=== PATIENT | male | born 1960 | race Caucasian/White ===

== ENCOUNTER 2018-10-12 08:11 | Emergency (ER) | payer OTHER ==
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
== END 2018-10-12 10:59 | disposition home or self-care (01) ==
LOC: UCEAST 08:11
DX: S29.012A Strain of muscle and tendon of back wall of thorax, initial encounter (principal); X58.XXXA Exposure to other specified factors, initial encounter; Y93.9 Activity, unspecified; Y92.89 Other specified places as the place of occurrence of the external cause; Y99.0 Civilian activity done for income or pay; F17.210 Nicotine dependence, cigarettes, uncomplicated
CPT/HCPCS: 72040; 99203; G0463